=== PATIENT | male | born 1950 | race Caucasian/White ===

== ENCOUNTER → 2023-06-16 | Outpatient (CLI) | payer MEDICARE ==
--- NOTE | 2023-06-16 15:14 | US ---
EXAMINATION TYPE: US venous doppler duplex LE BI DATE OF EXAM: 06/16/2023 3:06 PM COMPARISON: NONE CLINICAL INDICATION: Male, 72 years old with history of M79.661 PAIN RT LOW LEG,M79.662 PAIN LT LOW LEG; leg pain SIDE PERFORMED: Bilateral TECHNIQUE: The bilateral lower extremity deep venous system is examined utilizing real time linear a rray sonography with graded compression, doppler sonography and color-flow sonography. VESSELS IMAGED: Common Femoral Vein Deep Femoral Vein Greater Saphenous Vein * Femoral Vein Popliteal Vein Small Saphenous Vein * Proximal Calf Veins (* superficial vessels) Right Leg: Negative for DVT Left Leg: Negative for DVT IMPRESSION: Grayscale, color doppler, spectral doppler imaging performed of the deep veins of the lo wer extremities. There is normal flow, compressibility, vascular waveforms. Negative for DVT
[2023-06-16 19:06] LABS: Basophils # (A) 0.16 X 10*3/uL (0.00-0.10); Basophils % (A) 1.3 %; Eosinophils # (A) 0.38 X 10*3/uL (0.04-0.35); Eosinophils % (A) 3.1 %; HCT 45.3 % (39.6-50.0); HGB 15.6 g/dL (13.0-17.0); Lymphocytes # (A) 4.17 X 10*3/uL (0.90-5.00); Lymphocytes % (A) 34.1 %; MCH 31.1 pg (27.0-32.0); MCHC 34.4 g/dL (32.0-37.0); MCV 90.4 FL (80.0-97.0); Mean Platelet Volume 10.9 FL (9.5-12.2); Monocytes # (A) 1.13 X 10*3/uL (0.20-1.00); Monocytes % (A) 9.2 %; NRBC Per 100 WBC 0 X 10*3/uL (0.00-0.01); Neutrophils # (A) 6.23 X 10*3/uL (1.80-7.70); Platelet Count 194 X 10*3/uL (140-440); RBC 5.01 X 10*6/uL (4.40-5.60); RDW 12.5 % (11.5-14.5); WBC 12.23 X 10*3/uL (4.50-10.00)
[2023-06-16 21:59] LABS: ALT 29 U/L (10-49); AST 26 U/L (14-35); Albumin 4.9 g/dL (3.8-4.9); Albumin/Globulin Ratio 1.81 Ratio (1.60-3.17); Alkaline Phosphatase 78 U/L (41-126); BUN/Creat Ratio 16.33 Ratio (12.00-20.00); Blood Urea Nitrogen 34.3 mg/dL (9.0-27.0); Calcium 10.1 mg/dL (8.7-10.3); Carbon Dioxide 20.2 mmol/L (21.6-31.8); Chloride 96 mmol/L (96-109); Globulin 2.7 g/dL (1.6-3.3); Glucose 129 mg/dL (70-110); Potassium 5.2 mmol/L (3.5-5.5); Sodium 135 mmol/L (135-145); Total Bilirubin 0.6 mg/dL (0.3-1.2); Total Protein 7.6 g/dL (6.2-8.2)
[2023-06-16 22:03] LABS: NT-Pro-B-Type Natriuretic Pept 142 pg/mL (0-125)
== END | disposition home or self-care (01) ==
LOC: RADUSWWP 14:25
PROVIDERS: ATTEND Family Medicine
DX: M79.661 Pain in right lower leg (principal); M79.662 Pain in left lower leg; R42 Dizziness and giddiness
CPT/HCPCS: 80053; 83880; 85025; 93970

== ENCOUNTER → 2023-07-02 | Outpatient (CLI) | payer MEDICARE ==
--- NOTE | 2023-07-02 10:00 | MR ---
EXAMINATION TYPE: MR lumbar spine wo con DATE OF EXAM: 07/02/2023 COMPARISON: NONE HISTORY: Low back pain into left leg TECHNIQUE: T1 and T2 axial and sagittal images of the lumbar spine are submitted. FINDINGS: There is no abnormal signal seen within the visualized spinal cord or paraspinal soft tissu es. At L1-2 there is mild degenerative disc disease with anterior hypertrophic spurring. There is no foca l herniation or canal stenosis. No foraminal encroachment At L2-3 there is facet arthropathy but no disc herniation or canal stenosis. No foraminal encroachmen t. Mild disc desiccation. At L3-4 there is mild disc desiccation with circumferential disc bulging and small broad-based protru thien. Mild effacement of thecal sac. Hypertrophic facet arthropathy and ligamentum flavum contribute to borderline to mild central stenosis. Very mild bilateral foraminal encroachment with no nerve root contact. Diminutive spinal canal contributes. At L4-5 there is degenerative disc disease with the ligamentum flavum hypertrophy and hypertrophic fa cet arthropathy. Broad-based disc bulging, diminutive spinal canal contribute to mild to moderate can al stenosis and bilateral foraminal encroachment. At L5-S1 there is a broad-based central and right paracentral disc protrusion. There is mild left and moderate right foraminal encroachment. Facet arthropathy and ligamentum flavum hypertrophy noted. German rderline canal stenosis. IMPRESSION: 1. Central and right paracentral disc protrusion or small broad-based herniation L5-S1 subligamentous . Borderline central stenosis with bilateral foraminal encroachment greater on the right. There may b e contact of the bilateral nerve root at this level, correlate for radiculopathy. 2. Additional multilevel multilevel facet arthropathy, canal stenosis and foraminal encroachment.
== END | disposition home or self-care (01) ==
LOC: RADMRIMAIN 08:25
PROVIDERS: ATTEND Family Medicine
DX: M54.16 Radiculopathy, lumbar region (principal); M51.27 Other intervertebral disc displacement, lumbosacral region; M47.816 Spondylosis without myelopathy or radiculopathy, lumbar region; M48.061 Spinal stenosis, lumbar region without neurogenic claudication
CPT/HCPCS: 72148